=== PATIENT | male | born 1970 | race Two or more races ===

== ENCOUNTER 2018-05-27 08:34 | Emergency (ER) | payer BC, OTHER ==
[2013-09-13 12:12] VITALS: Wt 88.5 kg
[~2018-05-27 08:34] MED LIST: ACET-1966 PO; ALPR-1 PO; ASPI-757 PO; AUG875 PO; AZIT500T47 PO; CARV6.2574 PO; CIPR-344 PO; CLON0.5T66 PO; FURO-45 PO; FURO40TA35 PO; LISI2.5T60 PO; MAGN400T36 PO; METO-734 PO; OMEP-125 PO; POTA20TA10 PO
--- NOTE | 2018-05-27 08:51 | ER Report ---
History and Physical Time Seen By MD: 08:51 Hx. of Stated Complaint: ABD PAIN Allergies: Coded Allergies: No Known Drug Allergies (Unverified , 05/27/18) Home Meds Reported Medications Acetaminophen (TYLENOL) 325 Mg Tablet, 500 MG PO Q4H PRN for PAIN/HEADACHE MAY GET OVER THE COUNTER AT THE STORE 09/15/13 Aspirin (ASPIRIN) 325 Mg Tablet, 325 MG PO QDAY, TAB MAY GET OVER THE COUNTER AT THE STORE 09/15/13 Carvedilol (COREG) 6.25 Mg Tablet, 1 TAB PO BID, #30 3 Refills TAKE 1/2 TABLET BY MOUTH TWICE A DAY 09/15/13 Furosemide (LASIX) 40 Mg Tablet, 0.5 TAB PO QDAY PRN for BLOATING, #60 3 Refills 09/15/13 Lisinopril (LISINOPRIL) 2.5 Mg Tablet, 20 MG PO BID 09/13/13 Discontinued Reported Medications Magnesium Oxide (MAGNESIUM OXIDE) 400 Mg Tablet, 400 MG PO QDAY, #30 3 Refills 09/15/13 Potassium Chloride (Potassium Chloride) 20 Meq Tablet.er, 20 MEQ PO TID, #100 3 Refills 09/15/13 Alprazolam 0.25 Mg Tab (XANAX 0.25 MG TAB) 0.25 Mg Tablet, 1 TAB PO TID PRN for ANXIETY, #30 3 Refills TAKE ONE TABLET BY MOUTH THREE TIMES A DAY 09/15/13 Metoclopramide Hcl (REGLAN) 10 Mg Tablet, 10 MG PO TIDAC 09/13/13 Omeprazole (OMEPRAZOLE) 20 Mg Capsule.dr, 1 CAP PO QDAY 06/30/13 Discontinued Scripts Clonazepam (KLONOPIN) 0.5 Mg Tablet, 0.5 MG PO BID, #10 TAB TAKE ONE TABLET BY MOUTH TWICE A DAY Prov:CATARINA COBB MD 09/16/13 Hx Smoking: No Smoking Status: Former Smoker Exposure to Second Hand Smoke?: No Hx Substance Use Disorder: No Hx Alcohol Use: No (PT QUIT) Constitutional Vital Sign - Last 24 Hours 05/27/18 05/27/18 05/27/18 05/27/18 08:34 08:38 08:43 09:00 Temp 98.9 Pulse 78 73 Resp 14 B/P (MAP) 143/95 (111) 143/95 123/90 (101) Pulse Ox 95 O2 Delivery Room Air 05/27/18 05/27/18 05/27/18 05/27/18 09:04 09:30 09:39 10:00 Pulse 69 66 B/P (MAP) 119/76 (90) 124/87 (99) Pulse Ox 95 95 O2 Delivery Room Air Room Air 05/27/18 05/27/18 05/27/18 05/27/18 10:09 10:30 10:39 10:44 Pulse 61 48 69 B/P (MAP) 114/74 (87) Pulse Ox 94 95 94 O2 Delivery Room Air Room Air Room Air 05/27/18 05/27/18 05/27/18 05/27/18 11:00 11:14 11:30 11:44 Pulse 67 72 B/P (MAP) 120/68 (85) 96/55 (69) Pulse Ox 99 99 O2 Delivery Room Air Room Air 05/27/18 05/27/18 05/27/18 05/27/18 12:00 12:05 12:30 12:35 Pulse 64 75 B/P (MAP) 115/82 (93) 125/85 (98) Pulse Ox 89 92 O2 Delivery Room Air Room Air Medical Decision Making Data Points Result Diagram: 05/27/1813 05/27/18 0913 Laboratory Hematology Test 05/27/18 09:13 Red Blood Count 5.30 M/uL (4.00-5.60) Mean Corpuscular Volume 89.9 fL (80.0-96.0) Mean Corpuscular Hemoglobin 31.7 pg (26.0-33.0) Mean Corpuscular Hemoglobin Concent 35.3 g/dL (32.0-36.0) Red Cell Distribution Width 12.3 % (11.5-14.5) Mean Platelet Volume 8.7 fL (7.2-11.1) Neutrophils (%) (Auto) 77.6 % (39.4-72.5) Lymphocytes (%) (Auto) 15.2 % (17.6-49.6) Monocytes (%) (Auto) 6.8 % (4.1-12.4) Eosinophils (%) (Auto) 0.3 % (0.4-6.7) Basophils (%) (Auto) 0.1 % (0.3-1.4) Nucleated RBC Relative Count (auto) 0.0 /100WBC Neutrophils # (Auto) 10.5 K/uL (2.0-7.4) Lymphocytes # (Auto) 2.1 K/uL (1.3-3.6) Monocytes # (Auto) 0.9 K/uL (0.3-1.0) Eosinophils # (Auto) 0.0 K/uL (0.0-0.5) Basophils # (Auto) 0.0 K/uL (0.0-0.1) Nucleated RBC Absolute Count (auto) 0.00 K/uL Sodium Level 137 mmol/L (137-145) Potassium Level 3.8 mmol/L (3.5-5.0) Chloride Level 106 mmol/L (98-107) Carbon Dioxide Level 23 mmol/L (22-30) Blood Urea Nitrogen 13 mg/dl (9-21) Creatinine 0.80 mg/dl (0.66-1.25) Glomerular Filtration Rate Calc > 60.0 Random Glucose 104 mg/dl (75-110) Calcium Level 9.4 mg/dl (8.4-10.2) Total Bilirubin 1.7 mg/dl (0.2-1.3) Aspartate Amino Transf (AST/SGOT) 25 U/L (0-35) Alanine Aminotransferase (ALT/SGPT) 34 U/L (0-56) Alkaline Phosphatase 69 U/L (0-126) Total Protein 7.9 g/dl (6.3-8.2) Albumin 4.3 g/dl (3.5-5.0) Lipase 62 U/L (23-300) Chemistry Test 05/27/18 09:13 White Blood Count 13.5 k/uL (4.5-11.0) Red Blood Count 5.30 M/uL (4.00-5.60) Hemoglobin 16.8 g/dL (14.0-18.0) Hematocrit 47.7 % (42.0-52.0) Mean Corpuscular Volume 89.9 fL (80.0-96.0) Mean Corpuscular Hemoglobin 31.7 pg (26.0-33.0) Mean Corpuscular Hemoglobin Concent 35.3 g/dL (32.0-36.0) Red Cell Distribution Width 12.3 % (11.5-14.5) Platelet Count 221 K/uL (150-450) Mean Platelet Volume 8.7 fL (7.2-11.1) Neutrophils (%) (Auto) 77.6 % (39.4-72.5) Lymphocytes (%) (Auto) 15.2 % (17.6-49.6) Monocytes (%) (Auto) 6.8 % (4.1-12.4) Eosinophils (%) (Auto) 0.3 % (0.4-6.7) Basophils (%) (Auto) 0.1 % (0.3-1.4) Nucleated RBC Relative Count (auto) 0.0 /100WBC Neutrophils # (Auto) 10.5 K/uL (2.0-7.4) Lymphocytes # (Auto) 2.1 K/uL (1.3-3.6) Monocytes # (Auto) 0.9 K/uL (0.3-1.0) Eosinophils # (Auto) 0.0 K/uL (0.0-0.5) Basophils # (Auto) 0.0 K/uL (0.0-0.1) Nucleated RBC Absolute Count (auto) 0.00 K/uL Glomerular Filtration Rate Calc > 60.0 Calcium Level 9.4 mg/dl (8.4-10.2) Total Bilirubin 1.7 mg/dl (0.2-1.3) Aspartate Amino Transf (AST/SGOT) 25 U/L (0-35) Alanine Aminotransferase (ALT/SGPT) 34 U/L (0-56) Alkaline Phosphatase 69 U/L (0-126) Total Protein 7.9 g/dl (6.3-8.2) Albumin 4.3 g/dl (3.5-5.0) Lipase 62 U/L (23-300) Depart Departure Latest Vital Signs Vital Signs Date Time Temp Pulse Resp B/P (MAP) Pulse Ox O2 Delivery O2 Flow Rate FiO2 05/27/18 12:35 75 92 Room Air 05/27/18 12:30 125/85 (98) 05/27/18 08:43 98.9 14 Condition: Stable Disposition: HOME OR SELF-CARE SERG LANGFORD MD May 27, 2018 08:51
[2018-05-27] MEDS ORDERED: FAMOTIDINE(*) 20MG/50ML PREMIX 50 ML IVPB ONE (08:55)
[2018-05-27] MEDS ORDERED: ONDANSETRON 4 MG/2 ML VIAL IVP ONE (08:55)
[2018-05-27] MEDS ORDERED: NS(*) 0.9% 1000 ML BAG 1,000 ML IV ONE ×2 (08:55→10:50)
[2018-05-27] MEDS ORDERED: KETOROLAC 30 MG/ML VIAL IVP ONE (10:00)
[2018-05-27] MEDS ORDERED: METOCLOPRAMIDE 10 MG/2 ML SDV IVP ONE (10:00)
[2018-05-27 10:06] LABS: PLATELET COUNT, AUTOMATED 221 K/uL (150-450)
--- NOTE | 2018-05-27 10:41 | ER Report ---
History and Physical Time Seen By MD: 08:35 Hx. of Stated Complaint: ABD PAIN (AUBREY CHILDS MD) HPI/ROS CHIEF COMPLAINT: abdominal pain nausea and vomiting HISTORY OF PRESENT ILLNESS: Patient is an otherwise healthy except male who yesterday had a homemade burrito subsequent license and started getting epigastric and right upper quadrant pain diaphoresis nausea with vomiting no fever chills or sweats no chest pain or shortness of breath patient has no surgical history does have history of early diagnosis congestive heart failure but subsequently after the male has had multiple episodes of nonbloody nonbilious emesis. On arrival to the emergency department about 12 hours after the initial incident still having right upper quadrant and epigastric discomfort patient denies any chest pain at this time denies any shortness of breath fever chills or sweats REVIEW OF SYSTEMS: Respiratory: No cough, no dyspnea. Cardiovascular: No chest pain, no palpitations. Gastrointestinal: Vomiting abdominal pain Musculoskeletal: No back pain. Remainder of the 14 system rev: Yes (AUBREY CHILDS MD) Allergies: Coded Allergies: No Known Drug Allergies (Unverified , 05/27/18) Home Meds Reported Medications Acetaminophen (TYLENOL) 325 Mg Tablet, 500 MG PO Q4H PRN for PAIN/HEADACHE MAY GET OVER THE COUNTER AT THE STORE 09/15/13 Aspirin (ASPIRIN) 325 Mg Tablet, 325 MG PO QDAY, TAB MAY GET OVER THE COUNTER AT THE STORE 09/15/13 Carvedilol (COREG) 6.25 Mg Tablet, 1 TAB PO BID, #30 3 Refills TAKE 1/2 TABLET BY MOUTH TWICE A DAY 09/15/13 Furosemide (LASIX) 40 Mg Tablet, 0.5 TAB PO QDAY PRN for BLOATING, #60 3 Refills 09/15/13 Lisinopril (LISINOPRIL) 2.5 Mg Tablet, 20 MG PO BID 09/13/13 Discontinued Reported Medications Magnesium Oxide (MAGNESIUM OXIDE) 400 Mg Tablet, 400 MG PO QDAY, #30 3 Refills 09/15/13 Potassium Chloride (Potassium Chloride) 20 Meq Tablet.er, 20 MEQ PO TID, #100 3 Refills 09/15/13 Alprazolam 0.25 Mg Tab (XANAX 0.25 MG TAB) 0.25 Mg Tablet, 1 TAB PO TID PRN for ANXIETY, #30 3 Refills TAKE ONE TABLET BY MOUTH THREE TIMES A DAY 09/15/13 Metoclopramide Hcl (REGLAN) 10 Mg Tablet, 10 MG PO TIDAC 09/13/13 Omeprazole (OMEPRAZOLE) 20 Mg Capsule.dr, 1 CAP PO QDAY 06/30/13 Discontinued Scripts Clonazepam (KLONOPIN) 0.5 Mg Tablet, 0.5 MG PO BID, #10 TAB TAKE ONE TABLET BY MOUTH TWICE A DAY Prov:CATARINA COBB MD 09/16/13 Reviewed Nurses Notes: Yes Old Medical Records Reviewed: Yes (AUBREY CHILDS MD) Hx Smoking: No Smoking Status: Former Smoker Exposure to Second Hand Smoke?: No Hx Substance Use Disorder: No Hx Alcohol Use: No (PT QUIT) (AUBREY CHILDS MD) Constitutional Vital Sign - Last 24 Hours 05/27/18 05/27/18 05/27/18 05/27/18 08:34 08:38 08:43 09:00 Temp 98.9 Pulse 78 73 Resp 14 B/P (MAP) 143/95 (111) 143/95 123/90 (101) Pulse Ox 95 O2 Delivery Room Air 05/27/18 05/27/18 05/27/18 05/27/18 09:04 09:30 09:39 10:00 Pulse 69 66 B/P (MAP) 119/76 (90) 124/87 (99) Pulse Ox 95 95 O2 Delivery Room Air Room Air 05/27/18 05/27/18 05/27/18 05/27/18 10:09 10:30 10:39 10:44 Pulse 61 48 69 B/P (MAP) 114/74 (87) Pulse Ox 94 95 94 O2 Delivery Room Air Room Air Room Air 05/27/18 05/27/18 05/27/18 05/27/18 11:00 11:14 11:30 11:44 Pulse 67 72 B/P (MAP) 120/68 (85) 96/55 (69) Pulse Ox 99 99 O2 Delivery Room Air Room Air 05/27/18 05/27/18 05/27/18 05/27/18 12:00 12:05 12:30 12:35 Pulse 64 75 B/P (MAP) 115/82 (93) 125/85 (98) Pulse Ox 89 92 O2 Delivery Room Air Room Air 05/27/18 05/27/18 12:40 12:59 Pulse 67 B/P (MAP) 115/79 (91) Pulse Ox 91 O2 Delivery Room Air (SERG LANGFORD MD) Physical Exam General Appearance: The patient is alert, has no immediate need for airway protection and no current signs of toxicity. Ears uncomfortable Eyes: Pupils equal and round no injection. Respiratory: Chest is non tender, lungs are clear to auscultation. Cardiac: regular rate and rhythm [ ] Gastrointestinal: Abdomen tenderness in the right upper quadrant epigastrium patient has no rebound guarding or masses normal bowel sounds Musculoskeletal: Neck: Neck is supple and non tender. Extremities have full range of motion and are non tender. Skin: No rashes or lesions. [ ] DIFFERENTIAL DIAGNOSIS: After history and physical exam differential diagnosis was considered for gastritis Jose is gallstone pancreatitis cholelithiasis choledocholithiasis ascending cholangitis (AUBREY CHILDS MD) Medical Decision Making Data Points Result Diagram: 05/27/18 0913 05/27/18 0913 Laboratory Hematology Test 05/27/18 09:13 Red Blood Count 5.30 M/uL (4.00-5.60) Mean Corpuscular Volume 89.9 fL (80.0-96.0) Mean Corpuscular Hemoglobin 31.7 pg (26.0-33.0) Mean Corpuscular Hemoglobin Concent 35.3 g/dL (32.0-36.0) Red Cell Distribution Width 12.3 % (11.5-14.5) Mean Platelet Volume 8.7 fL (7.2-11.1) Neutrophils (%) (Auto) 77.6 % (39.4-72.5) Lymphocytes (%) (Auto) 15.2 % (17.6-49.6) Monocytes (%) (Auto) 6.8 % (4.1-12.4) Eosinophils (%) (Auto) 0.3 % (0.4-6.7) Basophils (%) (Auto) 0.1 % (0.3-1.4) Nucleated RBC Relative Count (auto) 0.0 /100WBC Neutrophils # (Auto) 10.5 K/uL (2.0-7.4) Lymphocytes # (Auto) 2.1 K/uL (1.3-3.6) Monocytes # (Auto) 0.9 K/uL (0.3-1.0) Eosinophils # (Auto) 0.0 K/uL (0.0-0.5) Basophils # (Auto) 0.0 K/uL (0.0-0.1) Nucleated RBC Absolute Count (auto) 0.00 K/uL Sodium Level 137 mmol/L (137-145) Potassium Level 3.8 mmol/L (3.5-5.0) Chloride Level 106 mmol/L (98-107) Carbon Dioxide Level 23 mmol/L (22-30) Blood Urea Nitrogen 13 mg/dl (9-21) Creatinine 0.80 mg/dl (0.66-1.25) Glomerular Filtration Rate Calc > 60.0 Random Glucose 104 mg/dl (75-110) Calcium Level 9.4 mg/dl (8.4-10.2) Total Bilirubin 1.7 mg/dl (0.2-1.3) Aspartate Amino Transf (AST/SGOT) 25 U/L (0-35) Alanine Aminotransferase (ALT/SGPT) 34 U/L (0-56) Alkaline Phosphatase 69 U/L (0-126) Total Protein 7.9 g/dl (6.3-8.2) Albumin 4.3 g/dl (3.5-5.0) Lipase 62 U/L (23-300) Chemistry Test 05/27/18 09:13 White Blood Count 13.5 k/uL (4.5-11.0) Red Blood Count 5.30 M/uL (4.00-5.60) Hemoglobin 16.8 g/dL (14.0-18.0) Hematocrit 47.7 % (42.0-52.0) Mean Corpuscular Volume 89.9 fL (80.0-96.0) Mean Corpuscular Hemoglobin 31.7 pg (26.0-33.0) Mean Corpuscular Hemoglobin Concent 35.3 g/dL (32.0-36.0) Red Cell Distribution Width 12.3 % (11.5-14.5) Platelet Count 221 K/uL (150-450) Mean Platelet Volume 8.7 fL (7.2-11.1) Neutrophils (%) (Auto) 77.6 % (39.4-72.5) Lymphocytes (%) (Auto) 15.2 % (17.6-49.6) Monocytes (%) (Auto) 6.8 % (4.1-12.4) Eosinophils (%) (Auto) 0.3 % (0.4-6.7) Basophils (%) (Auto) 0.1 % (0.3-1.4) Nucleated RBC Relative Count (auto) 0.0 /100WBC Neutrophils # (Auto) 10.5 K/uL (2.0-7.4) Lymphocytes # (Auto) 2.1 K/uL (1.3-3.6) Monocytes # (Auto) 0.9 K/uL (0.3-1.0) Eosinophils # (Auto) 0.0 K/uL (0.0-0.5) Basophils # (Auto) 0.0 K/uL (0.0-0.1) Nucleated RBC Absolute Count (auto) 0.00 K/uL Glomerular Filtration Rate Calc > 60.0 Calcium Level 9.4 mg/dl (8.4-10.2) Total Bilirubin 1.7 mg/dl (0.2-1.3) Aspartate Amino Transf (AST/SGOT) 25 U/L (0-35) Alanine Aminotransferase (ALT/SGPT) 34 U/L (0-56) Alkaline Phosphatase 69 U/L (0-126) Total Protein 7.9 g/dl (6.3-8.2) Albumin 4.3 g/dl (3.5-5.0) Lipase 62 U/L (23-300) (SERG LANGFORD MD) ED Course/Re-evaluation ED Course 47-year-old male who started with acute nausea and vomiting after eating a spicy and fatty meal last night. Symptoms continued this morning. Pt. exhibited Mild abdominal midepigastric TTP, so RUQ US was obtained. Noted is a mild leukocytosis, but normal LFTs and liapse. Gallbladder US shows no evidence of acute process. Questionable fatty liver. Patient's symptoms have improved after IV fluids and anti-nausea meds. No abdominal pain at this time. Repeat abdominal exam improved. Considered further imaging, but US is adequate and symptoms have improved so will not do any further imaging at this time. I went back to talk with the patient and his one last time and also do one additional abdominal exam before discharging him, but they left before being formally discharged. We will follow up with him on the phone. Decision to Disposition Date: May 27, 2018 Decision to Disposition Time: 13:16 (SERG LANGFORD MD) Depart Departure Latest Vital Signs Vital Signs Date Time Temp Pulse Resp B/P (MAP) Pulse Ox O2 Delivery O2 Flow Rate FiO2 05/27/18 12:59 115/79 (91) 05/27/18 12:40 67 91 Room Air 05/27/18 08:43 98.9 14 (SERG LANGFORD MD) Impression: Primary Impression: Nausea & vomiting Additional Impression: Epigastric discomfort Condition: Improved Disposition: HOME OR SELF-CARE Patient Instructions: Acute Nausea and Vomiting (ED), Epigastric Pain (ED) Problem Qualifiers Primary Impression: Nausea & vomiting Vomiting type: unspecified Vomiting Intractability: non-intractable Qualified Codes: R11.2 - Nausea with vomiting, unspecified AUBREY CHILDS MD May 27, 2018 10:41 SERG LANGFORD MD May 27, 2018 13:19
--- NOTE | 2018-05-27 11:43 | RADIOLOGY IMAGING REPORT ---
FACILITY: [facility] PATIENT NAME: Peewee Albright : 1970 MR: [id number] V: [id number] EXAM DATE: ORDERING PHYSICIAN: AUBREY CHILDS TECHNOLOGIST: Location: [facility] Patient: Peewee Albright : 1970 Visit/Account:[id number] Date of Sevice: 05/27/2018 GALLBLADDER HISTORY: Epigastric pain COMPARISON: None. FINDINGS: Gallbladder: Unremarkable; no stones or sludge. Liver: There is mild increased echogenicity throughout liver which can be seen with fatty infiltratio n or other infiltrative process Common duct: Normal, 3.6 mm diameter. Pancreas: Partially obscured by bowel, visualized aspects unremarkable. Right kidney: Right kidney appears unremarkable measuring 11.1 cm in length Upper abdominal aorta and IVC: Patent. Ascites: None visualized. IMPRESSION: Mild increased echogenicity throughout liver which can be seen with fatty infiltration or other infil trative process Report Dictated By: Meghna Clark MD at 05/27/2018 11:34 AM Report E-Signed By: Meghna Clark MD at 05/27/2018 11:38 AM WSN:[id number]
[2018-05-27 12:59] VITALS: BP 115/79
== END 2018-05-27 13:24 | disposition home or self-care (01) ==
LOC: ER 09:02
DX: R11.2 Nausea with vomiting, unspecified (principal); R10.13 Epigastric pain
CPT/HCPCS: 76705; 83690; 85025; 96361; 96374; 96375; 99284; J1885; J2405; J2765; J3490; J7030; 82040; 82247; 82310; 82374; 82435; 82565; 82947; 84075; 84132; 84155; 84295; 84450; 84460; 84520

== ENCOUNTER 2018-08-12 18:40 | Emergency (ER) | payer BC ==
[2013-09-13 12:12] VITALS: Wt 90.7 kg
--- NOTE | 2018-08-12 18:50 | ER Report ---
History and Physical Time Seen By MD: 18:50 Hx. of Stated Complaint: Left flank pain- possible kidney stone HPI/ROS CHIEF COMPLAINT: Left flank pain that started at 1600 HISTORY OF PRESENT ILLNESS: 47 year old male presents to ED with severe left flank pain that radiates to his lower abdomen. Pain started about 1600 with acute, sudden onset. Patient reports sharp and stabbing pain. States that he has urgency of urination, but only able to urinate a small amount. Reports urine was brown and felt "gritty" when it came out. Report pain and burning with urination. REVIEW OF SYSTEMS: Constitutional: Denies fevers, chills Respiratory: No cough, no dyspnea. Cardiovascular: No chest pain, no palpitations. Gastrointestinal: Left flank pain that radiates to lower abdomen. Pain is sharp, stabbing, and severe. No vomiting, no nausea. No diarrhea. Genitourinary: Reports urgency, burning, and pain of urination. Reports brown urine and urine retention. Reports gritty sensation when urinating. Skin: No rashes. Allergies: Coded Allergies: No Known Drug Allergies (Unverified , 08/12/18) Home Meds Active Scripts Tamsulosin Hcl (FLOMAX) 0.4 Mg Cap.er.24h, 0.4 MG PO DAILY, #15 CAP Prov:SRIDEVI FIERRO [facility] 08/12/18 Ondansetron 4 Mg Odt (ONDANSETRON 4 MG ODT) 4 Mg Tab.rapdis, 4 MG PO Q6H PRN for NAUSEA/VOMITING, #20 TAB Prov:SRIDEVI FIERRO [facility] 08/12/18 Hydrocodone Bit/Acetaminophen (HYDROCODON-ACETAMINOPHEN 5-325) 1 Each Tablet, 1 EACH PO Q4-6H PRN for PAIN, #10 TAB Prov:SRIDEVI FIERRO 08/12/18 Ketorolac Tromethamine (KETOROLAC TROMETHAMINE) 10 Mg Tab, 10 MG PO Q6H, #20 TAB Prov:SRIDEVI FIERRO [facility] 08/12/18 Reported Medications Acetaminophen (TYLENOL) 325 Mg Tablet, 500 MG PO Q4H PRN for PAIN/HEADACHE MAY GET OVER THE COUNTER AT THE STORE 09/15/13 Aspirin (ASPIRIN) 325 Mg Tablet, 325 MG PO QDAY, TAB MAY GET OVER THE COUNTER AT THE STORE 09/15/13 Carvedilol (COREG) 6.25 Mg Tablet, 1 TAB PO BID, #30 3 Refills TAKE 1/2 TABLET BY MOUTH TWICE A DAY 09/15/13 Furosemide (LASIX) 40 Mg Tablet, 0.5 TAB PO QDAY PRN for BLOATING, #60 3 Refills 09/15/13 Lisinopril (LISINOPRIL) 2.5 Mg Tablet, 20 MG PO BID 09/13/13 Past Medical/Surgical History Patient with significant past medical history of heart failure and hypertension. No significant past surgical history. Reviewed Nurses Notes: Yes Hx Smoking: No Smoking Status: Former Smoker Exposure to Second Hand Smoke?: No Hx Substance Use Disorder: No Hx Alcohol Use: No (PT QUIT) Constitutional Vital Sign - Last 24 Hours 08/12/18 08/12/18 08/12/18 08/12/18 18:44 18:46 18:55 19:00 Temp 98.5 Pulse 62 66 Resp 22 B/P (MAP) 140/88 (105) 140/88 136/78 (97) Pulse Ox 95 95 O2 Delivery Room Air 08/12/18 08/12/18 08/12/18 08/12/18 19:10 19:25 19:40 19:41 Pulse 73 73 ??? B/P (MAP) 118/60 (79) Pulse Ox 97 95 08/12/18 08/12/18 08/12/18 08/12/18 19:55 20:00 20:10 20:25 Pulse 75 78 ??? B/P (MAP) 112/54 (73) Pulse Ox 94 90 Physical Exam General Appearance: The patient is alert, has no immediate need for airway protection and no current signs of toxicity. Eyes: Pupils equal and round no injection. Respiratory: Chest is non tender, lungs are clear to auscultation. Cardiac: regular rate and rhythm Gastrointestinal: Left flank pain and lower abdominal pain with palpation. Abdomen is soft, no masses, bowel sounds normal. Skin: No rashes or lesions. DIFFERENTIAL DIAGNOSIS: After history and physical exam differential diagnosis was considered for nephrolithiasis, pyelonrphritis, UTI, prostatitis, bowel perforation, muscle strain. Medical Decision Making Data Points Result Diagram: 08/12/18 1850 08/12/18 185 Laboratory Hematology Test 08/12/18 18:50 08/12/18 19:33 Red Blood Count 5.34 M/uL (4.00-5.60) Mean Corpuscular Volume 92.3 fL (80.0-96.0) Mean Corpuscular Hemoglobin 31.9 pg (26.0-33.0) Mean Corpuscular Hemoglobin Concent 34.6 g/dL (32.0-36.0) Red Cell Distribution Width 12.8 % (11.5-14.5) Mean Platelet Volume 8.7 fL (7.2-11.1) Neutrophils (%) (Auto) 80.6 % (39.4-72.5) Lymphocytes (%) (Auto) 13.9 % (17.6-49.6) Monocytes (%) (Auto) 4.4 % (4.1-12.4) Eosinophils (%) (Auto) 0.9 % (0.4-6.7) Basophils (%) (Auto) 0.2 % (0.3-1.4) Nucleated RBC Relative Count (auto) 0.0 /100WBC Neutrophils # (Auto) 15.1 K/uL (2.0-7.4) Lymphocytes # (Auto) 2.6 K/uL (1.3-3.6) Monocytes # (Auto) 0.8 K/uL (0.3-1.0) Eosinophils # (Auto) 0.2 K/uL (0.0-0.5) Basophils # (Auto) 0.0 K/uL (0.0-0.1) Nucleated RBC Absolute Count (auto) 0.01 K/uL Erythrocyte Sedimentation Rate 6 mm/HOUR (0-15) Sodium Level 137 mmol/L (137-145) Potassium Level 4.4 mmol/L (3.5-5.0) Chloride Level 103 mmol/L (98-107) Carbon Dioxide Level 23 mmol/L (22-30) Blood Urea Nitrogen 17 mg/dl (9-21) Creatinine 1.10 mg/dl (0.66-1.25) Glomerular Filtration Rate Calc > 60.0 Random Glucose 156 mg/dl (75-110) Calcium Level 9.7 mg/dl (8.4-10.2) Total Bilirubin 1.6 mg/dl (0.2-1.3) Aspartate Amino Transf (AST/SGOT) 31 U/L (0-35) Alanine Aminotransferase (ALT/SGPT) 31 U/L (0-56) Alkaline Phosphatase 80 U/L (0-126) C-Reactive Protein 0.6 mg/dl (<1.0) Total Protein 8.8 g/dl (6.3-8.2) Albumin 4.9 g/dl (3.5-5.0) Urine Color Yellow Urine Clarity Clear Urine pH 6.0 pH (4.8-9.5) Urine Specific [place]rick 1.015 Urine Protein Negative mg/dL (NEGATIVE) Urine Glucose (UA) Negative mg/dL (NEGATIVE) Urine Ketones Trace mg/dL (NEGATIVE) Urine Blood Large (NEGATIVE) Urine Nitrite Negative (NEGATIVE) Urine Bilirubin Negative (NEGATIVE) Urine Urobilinogen Negative mg/dL (0.2-1.9) Urine Leukocyte Esterase Negative (NEGATIVE) Urine RBC 1647 /HPF (0-2/HPF) Urine WBC <1 /HPF (0-5/HPF) Urine Squamous Epithelial Cells None /LPF (</=FEW) Urine Bacteria Negative /HPF (NONE-FEW) Urine Mucus Few /HPF (NONE-FEW) Chemistry Test 08/12/18 18:50 08/12/18 19:33 White Blood Count 18.7 k/uL (4.5-11.0) Red Blood Count 5.34 M/uL (4.00-5.60) Hemoglobin 17.1 g/dL (14.0-18.0) Hematocrit 49.3 % (42.0-52.0) Mean Corpuscular Volume 92.3 fL (80.0-96.0) Mean Corpuscular Hemoglobin 31.9 pg (26.0-33.0) Mean Corpuscular Hemoglobin Concent 34.6 g/dL (32.0-36.0) Red Cell Distribution Width 12.8 % (11.5-14.5) Platelet Count 245 K/uL (150-450) Mean Platelet Volume 8.7 fL (7.2-11.1) Neutrophils (%) (Auto) 80.6 % (39.4-72.5) Lymphocytes (%) (Auto) 13.9 % (17.6-49.6) Monocytes (%) (Auto) 4.4 % (4.1-12.4) Eosinophils (%) (Auto) 0.9 % (0.4-6.7) Basophils (%) (Auto) 0.2 % (0.3-1.4) Nucleated RBC Relative Count (auto) 0.0 /100WBC Neutrophils # (Auto) 15.1 K/uL (2.0-7.4) Lymphocytes # (Auto) 2.6 K/uL (1.3-3.6) Monocytes # (Auto) 0.8 K/uL (0.3-1.0) Eosinophils # (Auto) 0.2 K/uL (0.0-0.5) Basophils # (Auto) 0.0 K/uL (0.0-0.1) Nucleated RBC Absolute Count (auto) 0.01 K/uL Erythrocyte Sedimentation Rate 6 mm/HOUR (0-15) Glomerular Filtration Rate Calc > 60.0 Calcium Level 9.7 mg/dl (8.4-10.2) Total Bilirubin 1.6 mg/dl (0.2-1.3) Aspartate Amino Transf (AST/SGOT) 31 U/L (0-35) Alanine Aminotransferase (ALT/SGPT) 31 U/L (0-56) Alkaline Phosphatase 80 U/L (0-126) C-Reactive Protein 0.6 mg/dl (<1.0) Total Protein 8.8 g/dl (6.3-8.2) Albumin 4.9 g/dl (3.5-5.0) Urine Color Yellow Urine Clarity Clear Urine pH 6.0 pH (4.8-9.5) Urine Specific Head[place] 1.015 Urine Protein Negative mg/dL (NEGATIVE) Urine Glucose (UA) Negative mg/dL (NEGATIVE) Urine Ketones Trace mg/dL (NEGATIVE) Urine Blood Large (NEGATIVE) Urine Nitrite Negative (NEGATIVE) Urine Bilirubin Negative (NEGATIVE) Urine Urobilinogen Negative mg/dL (0.2-1.9) Urine Leukocyte Esterase Negative (NEGATIVE) Urine RBC 1647 /HPF (0-2/HPF) Urine WBC <1 /HPF (0-5/HPF) Urine Squamous Epithelial Cells None /LPF (</=FEW) Urine Bacteria Negative /HPF (NONE-FEW) Urine Mucus Few /HPF (NONE-FEW) Urinalysis Test 08/12/18 19:33 Urine Color Yellow Urine Clarity Clear Urine pH 6.0 pH (4.8-9.5) Urine Specific Headrick 1.015 Urine Protein Negative mg/dL (NEGATIVE) Urine Glucose (UA) Negative mg/dL (NEGATIVE) Urine Ketones Trace mg/dL (NEGATIVE) Urine Blood Large (NEGATIVE) Urine Nitrite Negative (NEGATIVE) Urine Bilirubin Negative (NEGATIVE) Urine Urobilinogen Negative mg/dL (0.2-1.9) Urine Leukocyte Esterase Negative (NEGATIVE) Urine RBC 1647 /HPF (0-2/HPF) Urine WBC <1 /HPF (0-5/HPF) Urine Squamous Epithelial Cells None /LPF (</=FEW) Urine Bacteria Negative /HPF (NONE-FEW) Urine Mucus Few /HPF (NONE-FEW) EKG/Imaging Imaging CT abdomen and pelvis with IV contrast Indication: Left flank pain. Comparison: 06/30/2013.. Technique: Axial CT images were obtained through the abdomen and pelvis during injection of nonionic iodinated intravenous contrast. Reformatted coronal and sagittal images were also obtained. One of the following dose optimization techniques was utilized in the performance of this exam: Automated exposure control; adjustment of the mA and/or kV according to the patient's size; or use of an iterative reconstruction technique. Specific details can be referenced in the facility's radiology CT exam operational policy. Contrast: 75 ml of Isovue-370 IV contrast. Findings: Lower lung krishnan: Calcified granuloma, otherwise clear. Liver: No focal parenchymal abnormality of the liver. Biliary: Gallbladder appears unremarkable as well as the intra and extra hepatic biliary system. Pancreas: Normal appearance. Spleen: Normal appearance. Adrenal glands: Unremarkable. Kidneys / retroperitoneum: Mild left hydronephrosis due to a very distal 3 mm ureteral stone. No other urinary stones. No right hydronephrosis. Left kidney shows mild delay function compared to the right. The superior pole the right kidney does show a 1.5 cm cyst. No other discrete renal lesions. Bowel / peritoneum / mesenteries: There are couple diverticula along the descending sigmoid colon though pericolonic inflammation. The colon shows no other focal abnormality. The appendix is normal. Small bowel shows no focal normality or obstruction. Stomach is unremarkable. Lymph node assessment: No pathologic adenopathy identified. Pelvic structures: Pelvic structures visualized within normal limits. There does appear to be a small right hydrocele. Vessels: No significant atherosclerotic calcifications seen throughout a nonaneurysmal abdominal aorta and branches. Musculoskeletal / Body wall: No acute or aggressive osseous abnormality. IMPRESSION: 1. There is a very distal left ureteral stone measuring 3 mm causing mild left hydronephrosis and mild nephropathy changes. 2. Diverticulosis without radiographic indication diverticulitis. 3. Other chronic findings as above. Report Dictated By: Miguelito Hernandez at 08/12/2018 7:53 PM Report E-Signed By: Miguelito Hernandez at 08/12/2018 8:07 PM ED Course/Re-evaluation ED Course Patient admitted to an exam, history and physical obtained, differentials considered. Patient presents to ED with severe left flank pain that radiates to his lower abdomen. Pain started about 1600 with acute, sudden onset. Patient reports sharp and stabbing pain. States that he has urgency of urination, but only able to urinate a small amount. Reports urine was brown and felt "gritty" when it came out. Reports pain and burning with urination. No vomiting, nausea, or diarrhea. Left flank pain and lower abdominal pain with palpation. CBC, CMP, UA, ESR, CRP, and CT of abdomen and pelvis with contrast gathered. IV started with NS 1000 ml NS infusing. Zofran 4 mg IVP and Ketorolac 30mg IVP given. Patient reports the ketorolac helped his pain. CT showed very distal left ureteral stone measuring 3 mm causing mild left hydronephrosis and mild nephropathy changes. WBC 18.7 and neutrophils 80.6% likely due to a stress response. ESR and CRP within normal range. UA with large amounts of blood and 1647 RBC. Patient to be sent home with flomax, ketorolac as needed for pain, and zofran as needed for nausea. Patient to filter urine and bring it to the lab for evaluation. Patient states understanding with plan of care. Decision to Disposition Date: Aug 12, 2018 Decision to Disposition Time: 20:16 Depart Departure Latest Vital Signs Vital Signs Date Time Temp Pulse Resp B/P (MAP) Pulse Ox O2 Delivery O2 Flow Rate FiO2 08/12/18 20:25 ??? 08/12/18 20:10 90 08/12/18 20:00 112/54 (73) 08/12/18 18:46 98.5 22 Room Air Impression: Primary Impression: Kidney stone Condition: Improved Disposition: HOME OR SELF-CARE New Scripts Tamsulosin Hcl (FLOMAX) 0.4 Mg Cap.er.24h 0.4 MG PO DAILY, #15 CAP Prov: SRIDEVI FEIRRO 08/12/18 Ondansetron 4 Mg Odt (ONDANSETRON 4 MG ODT) 4 Mg Tab.rapdis 4 MG PO Q6H PRN for NAUSEA/VOMITING, #20 TAB Prov: SRIDEVI FIERRO 08/12/18 Hydrocodone Bit/Acetaminophen (HYDROCODON-ACETAMINOPHEN 5-325) 1 Each Tablet 1 EACH PO Q4-6H PRN for PAIN, #10 TAB Prov: SIRDEVI FIERRO 08/12/18 Ketorolac Tromethamine (KETOROLAC TROMETHAMINE) 10 Mg Tab 10 MG PO Q6H, #20 TAB Prov: SRIDEVI FIERRO 08/12/18 Patient Instructions: Kidney Stones (ED) Additional Instructions: Increase fluid intake. Get plenty of rest. Take medication as prescribed. Follow up with your primary care provider in the next week. Return to the ER if condition worsens. Please filter your urine and bring it to the lab for evaluation. SRIDEVI FIERRO Aug 12, 2018 18:50
[2018-08-12] MEDS ORDERED: NS(*) 0.9% 1000 ML BAG 1,000 ML IV ONE (18:56)
[2018-08-12] MEDS ORDERED: ONDANSETRON 4 MG/2 ML VIAL IVP ONE (19:00)
[2018-08-12] MEDS ORDERED: KETOROLAC 30 MG/ML VIAL IVP ONE (19:00)
[2018-08-12] MEDS ORDERED: IOPAMIDOL 76% 150 ML INFUS BTL 150 ML ONE (19:10)
[2018-08-12 19:22] LABS: PLATELET COUNT, AUTOMATED 245 K/uL (150-450)
[2018-08-12 20:00] VITALS: BP 112/54
--- NOTE | 2018-08-12 20:11 | RADIOLOGY IMAGING REPORT ---
FACILITY: [facility] PATIENT NAME: Peewee Albright : 1970 MR: [id number] V: [id number] EXAM DATE: ORDERING PHYSICIAN: SRIDEVI FIERRO TECHNOLOGIST: Location: Patient: Peewee Albright : 1970 Visit/Account:[id number] Date of Sevice: 08/12/2018 CT abdomen and pelvis with IV contrast Indication: Left flank pain. Comparison: 06/30/2013.. Technique: Axial CT images were obtained through the abdomen and pelvis during injection of nonioni c iodinated intravenous contrast. Reformatted coronal and sagittal images were also obtained. One of the following dose optimization techniques was utilized in the performance of this exam: Autom ated exposure control; adjustment of the mA and/or kV according to the patient's size; or use of an i terative reconstruction technique. Specific details can be referenced in the facility's radiology C T exam operational policy. Contrast: 75 ml of Isovue-370 IV contrast. Findings: Lower lung krishnan: Calcified granuloma, otherwise clear. Liver: No focal parenchymal abnormality of the liver. Biliary: Gallbladder appears unremarkable as well as the intra and extra hepatic biliary system. Pancreas: Normal appearance. Spleen: Normal appearance. Adrenal glands: Unremarkable. Kidneys / retroperitoneum: Mild left hydronephrosis due to a very distal 3 mm ureteral stone. No othe r urinary stones. No right hydronephrosis. Left kidney shows mild delay function compared to the righ t. The superior pole the right kidney does show a 1.5 cm cyst. No other discrete renal lesions. Bowel / peritoneum / mesenteries: There are couple diverticula along the descending sigmoid colon tho ugh pericolonic inflammation. The colon shows no other focal abnormality. The appendix is normal. Sma ll bowel shows no focal normality or obstruction. Stomach is unremarkable. Lymph node assessment: No pathologic adenopathy identified. Pelvic structures: Pelvic structures visualized within normal limits. There does appear to be a sm all right hydrocele. Vessels: No significant atherosclerotic calcifications seen throughout a nonaneurysmal abdominal aort a and branches. Musculoskeletal / Body wall: No acute or aggressive osseous abnormality. IMPRESSION: 1. There is a very distal left ureteral stone measuring 3 mm causing mild left hydronephrosis and mil d nephropathy changes. 2. Diverticulosis without radiographic indication diverticulitis. 3. Other chronic findings as above. Report Dictated By: Miguelito Hernandez at 08/12/2018 7:53 PM Report E-Signed By: Miguelito Hernandez at 08/12/2018 8:07 PM [id number]
[2018-08-12] MEDS ORDERED: TAMS0.4C25 PO (20:19)
[2018-08-12] MEDS ORDERED: ONDA4TAB9 PO (20:19)
[2018-08-12] MEDS ORDERED: HYDR-385 PO (20:19)
[2018-08-12] MEDS ORDERED: KET10 PO (20:19)
[2018-08-12] MEDS ORDERED: KETOROLAC TROM 10 MG TAB TH PO ONE (20:25)
[2018-08-12] MEDS ORDERED: ACET/HYDROC 5/325MG TH ER ONLY 2 TAB/BOTTLE PO ONE (20:25)
[2018-08-12] MEDS ORDERED: ONDANSETRON 4 MG ODT TH SL ONE (20:25)
== END 2018-08-12 20:32 | disposition home or self-care (01) ==
LOC: ER 19:13
DX: N13.2 Hydronephrosis with renal and ureteral calculous obstruction (principal); K57.90 Diverticulosis of intestine, part unspecified, without perforation or abscess without bleeding
CPT/HCPCS: 74177; 81001; 85025; 85651; 86140; 96361; 96374; 96375; 99284; J1885; J2405; J7030; Q9967; S0119; 82040; 82247; 82310; 82374; 82435; 82565; 82947; 84075; 84132; 84155; 84295; 84450; 84460; 84520